=== PATIENT | male | born 1945 | race Hispanic/Latino ===

== ENCOUNTER 2017-08-17 06:22 | Observation (INO) | payer BC ==
[~2017-08-17 06:22] MED LIST: NACL ONE
[2017-08-17] MEDS ORDERED: ECOTRIN PO ONE (06:54)
[2017-08-17] MEDS ORDERED: NACL 0.9% 500 ML 500 ML IV SCH (07:00)
[2017-08-17 07:17] LABS: Hematocrit 37.2 % (35.5-45.6); Hemoglobin 13.3 gm/dl (11.8-15.2); Mean Corpuscular HGB Conc 36 % (32-34); Mean Corpuscular Hemoglobin 31 pg (28-32); Mean Corpuscular Volume 87 fl (84-94); Platelet Count 188 K/mm3 (140-440); Red Cell Distribution Width 14.8 % (13.2-15.2); White Blood Count 11.8 K/mm3 (4.5-11.0)
[2017-08-17 07:27] LABS: INR 1.14 (0.87-1.13)
[2017-08-17 07:41] LABS: BUN/Creatinine Ratio 22.3; Calcium 9.3 mg/dL (8.4-10.2); Chloride 97.3 mmol/L (98-107); Potassium 4.2 mmol/L (3.6-5.0)
[2017-08-17 08:15] LABS: Basophils % (Manual) 0 % (0.0-1.8); Blastocytes % (Manual) 0 %; Eosinophils % (Manual) 0 % (0.0-4.3)
[2017-08-17 08:16] LABS: Diff Status Complete; Ovalocytes 1+; Spherocytes Rare
[2017-08-17] MEDS ORDERED: BENADRYL ONE (09:30)
[2017-08-17] MEDS ORDERED: HEPARIN/NS 5000 UNIT/500ML(CATH LAB) 1,000 ML IR ONE (09:30)
[2017-08-17] MEDS ORDERED: VERSED ONE (09:31)
[2017-08-17] MEDS ORDERED: SUBLIMAZE ONE (09:31)
[2017-08-17] MEDS ORDERED: XYLOCAINE 2% INFILTRATI ONE ×2 (09:32→10:03)
[2017-08-17] MEDS ORDERED: CALAN ONE (09:33)
[2017-08-17] MEDS ORDERED: HEPARIN 10,000 UNITS/10 ML ONE (09:34)
[2017-08-17] MEDS ORDERED: NITROGLYCERIN SYRINGE 3 ML ONE (09:44)
[2017-08-17] MEDS ORDERED: BENADRYL IV ONE (10:00)
[2017-08-17] MEDS ORDERED: NACL 0.9% 500 ML IV ONE (10:00)
[2017-08-17] MEDS ORDERED: VERSED IV ONE (10:02)
[2017-08-17] MEDS ORDERED: SUBLIMAZE IV ONE (10:02)
[2017-08-17] MEDS ORDERED: NACL 0.9% 0 ML ONE (10:18)
[2017-08-17] MEDS ORDERED: NACL 0.9% 100 ML ONE (10:18)
[2017-08-17] MEDS ORDERED: NACL 0.9% 250ML 250 ML ONE (10:21)
[2017-08-17] MEDS ORDERED: NITROGLYCERIN SYRINGE UD ONE (10:37)
[2017-08-17] MEDS: ANGIOMAX IV ONE ×2 (10:40→10:41)
[2017-08-17] MEDS ORDERED: APRESOLINE ONE (10:41)
[2017-08-17] MEDS ORDERED: AGGRASTAT DRIP (12.5 MG/250 ML) 12,500 MCG/250 ML BAG IV ONE (10:43)
[2017-08-17] MEDS ORDERED: EFFIENT PO ONE (10:51)
[2017-08-17] MEDS ORDERED: ZOFRAN IV PRN (11:07)
[2017-08-17] MEDS ORDERED: TYLENOL PO PRN (11:07)
[2017-08-17] MEDS ORDERED: D50W (25GM) Syringe IV PRN (11:08)
[2017-08-17] MEDS: EFFIENT PO SCH (11:10)
[2017-08-17] MEDS ORDERED: ALUM-MAG HYDROX-SIMETH 200-200-20MG/5ML ONE (11:30)
[2017-08-17] MEDS: NOVOLOG SUB-Q SCH ×3 (13:13→22:17)
[2017-08-17] MEDS ORDERED: NOVOLOG SUB-Q ONE (13:13)
--- NOTE | 2017-08-17 19:03 | Cardiac Catherization Report ---
CARDIAC CATHETERIZATION REFERRING PHYSICIAN: Dr. Riccardo Rivera. INDICATION FOR PROCEDURE: The patient is a very pleasant 71-year-old gentleman with multiple PCIs, history of AK, having some mild chest discomfort, abnormal stress test with anterolateral ischemia, on greater than 2 antianginal medications, referred for left heart catheterization. Risks, benefits, and potential alternatives explained at length prior to obtaining informed consent. PROCEDURE IN DETAIL: The patient was brought to the propagator laborer in a postabsorptive state, prepped and draped in sterile fashion. Rafi's test in right hand normal. A 2 mL of 2% lidocaine used to anesthetize the right wrist. A standard 6-Portuguese hydrophilic sheath used to cannulate the right radial artery via modified Seldinger technique. All exchanges were performed to exchange a J-tip guidewire. JL3.5 catheter used to engage the left main. No dampening or ventricularization. Cineangiography performed in all projections. JR4 catheter used to cross the aortic valve under fluoroscopic guidance. Left ventriculography performed in 30 DEUTSCH and 30 JULIA projections via hand injections, catheter flushed. Manual pullback performed with continuous pressure monitoring. Catheter used to engage the right coronary. No dampening or ventricularization. Cineangiography performed in all projections. DATA: Aortic pressure is 160/80, LV pressure is 160. LVEDP of mmHg. Left ventriculography revealed normal systolic performance with estimated ejection fraction of 55% to 60%. No evidence of aortic stenosis. CORONARY ANATOMY: This is a right dominant system. Left main is a moderate sized vessel, no significant disease, bifurcates into left anterior descending and left circumflex. Left circumflex is a moderate sized vessel, courses AV groove. No significant obstructive disease identified. LAD is a moderate sized vessel, courses anterior intergroove, wraps around the apex. There are multiple stents in the proximal and mid LAD. There is 25% to 30% in-stent restenosis proximally. The distal segment of the stent and mid LAD has at least 90% to 95% in-stent restenosis and just distal to the stent, there is also discrete 90% stenosis. The distal vessel is small and with mild to moderate diffuse disease, JAKY 3 flow. Right coronary is a moderate sized vessel, courses AV groove, distally bifurcates in the posterior descending and posterolateral branch. There is a branch off of the PDA which is occluded. Left to right collaterals are identified. This is a small branch. Medical therapy recommended. At this point; given his symptoms, presentation, abnormal stress test, medication profile and angiographic findings, we decided to proceed with culprit stenosis in the mid LAD. EBU 3.5 guide used to engage the left main without difficulty. Abnormal ACT confirmed. The patient loaded with aspirin and Effient. A [place] wire was used to cross the lesion without difficulty. We used a 2.5 x 12 balloon to predilate the lesion without difficulty. Next, we used a 2.5 x 18 Resolute drug-eluting stent deployed at 10 for 30 seconds. Excellent final angiographic result. Intravascular ultrasound was performed. Reveals a well-opposed and well expanded stent. No other significant disease was identified, only 25% in-stent restenosis proximally. No complications. The patient is chest pain free. CONCLUSIONS: 1. Severe epicardial coronary disease in this right dominant system. A. Long segment of stents in the proximal and mid LAD, 25% in-stent restenosis in the proximal LAD, 90% to 95% in-stent restenosis in the distal segment of the mid LAD stent and the mid LAD just distal to the stent. This is the culprit vessel. B. Successful IVUS guided PCI with placement of drug-eluting stent (Resolute 2.5 x 18 drug-eluting stent) with excellent final angiographic and ultrasonographic results. C. A 100% chronic total occlusion of a small branch of the right PDA with extensive left to right collaterals. 2. Normal left ventricular systolic performance, estimated ejection fraction of 55% to 60%. At this point, the patient is clinically stable, chest pain free, loaded with aspirin, Effient, Aggrastat bolus. Radial sheath has been removed. Standard radial care, secondary and primary prevention measures were discussed. Discharge in a.m. if he remains stable. Results of the procedure were explained at length to the patient and family. All questions and concerns were addressed. The patient will follow up with Dr. Riccardo Rivera in the office. JOB# [id number] SBM/NTS
[2017-08-17] MEDS ORDERED: AMBIEN PO SCH (22:00)
[2017-08-17] MEDS: COREG PO SCH (22:17)
[2017-08-18 05:34] LABS: Hematocrit 41.2 % (35.5-45.6); Hemoglobin 14.5 gm/dl (11.8-15.2); Mean Corpuscular HGB Conc 35 % (32-34); Mean Corpuscular Hemoglobin 31 pg (28-32); Mean Corpuscular Volume 88 fl (84-94); Platelet Count 191 K/mm3 (140-440); Red Cell Distribution Width 14.7 % (13.2-15.2); White Blood Count 16.2 K/mm3 (4.5-11.0)
[2017-08-18 06:09] LABS: Creatine Kinase MB 5.1 ng/mL (0.0-4.0)
[2017-08-18 06:11] LABS: BUN/Creatinine Ratio 23.33; Calcium 9.5 mg/dL (8.4-10.2); Chloride 100.6 mmol/L (98-107); Potassium 3.8 mmol/L (3.6-5.0)
--- NOTE | 2017-08-18 06:23 | XRay Report ---
FINAL REPORT EXAM: XR CHEST 1V AP HISTORY: post pci TECHNIQUE: AP portable view(s) of the chest obtained. PRIORS: None. FINDINGS: No mediastinal shift. Cardiac silhouette is not enlarged. No pneumothorax, effusion, or focal pulmonary opacity identified. No acute skeletal findings. IMPRESSION: No acute pulmonary finding identified.
[2017-08-18 06:38] LABS: Basophils % (Manual) 0 % (0.0-1.8); Blastocytes % (Manual) 0 %; Eosinophils % (Manual) 0 % (0.0-4.3)
[2017-08-18 06:39] LABS: Diff Status Complete; Ovalocytes 1+
[2017-08-18] MEDS: COREG PO SCH (09:14)
[2017-08-18 09:15] VITALS: BP 168/78
[2017-08-18] MEDS: EFFIENT PO SCH (09:15)
[2017-08-18] MEDS: NOVOLOG SUB-Q SCH (09:15)
--- NOTE | 2017-08-18 09:39 | Short Stay Summary ---
Short Stay Documentation Date of service: 08/18/17 - History H&P: obtained from office - Allergies and Medications Current Medications: Allergies oxycodone Adverse Reaction (Verified 08/17/17 07:39) Hives Sulfa (Sulfonamide Antibiotics) Adverse Reaction (Verified 08/17/17 07:39) Hives IVP DYE Adverse Reaction (Uncoded 08/17/17 06:23) Hives Home Medications Medication Instructions Recorded Confirmed Last Taken Type Carvedilol Phosphate [Coreg CR] 40 mg PO QDAY 08/17/17 08/17/17 08/16/17 History Empagliflozin (Nf) [Jardiance (Nf)] 10 mg PO DAILY 08/17/17 08/17/17 08/16/17 History ISOSORBIDE MONOnitrate [Imdur ER] 30 mg PO DAILY 08/17/17 08/17/17 08/16/17 History Lisinopril [Zestril] 40 mg PO DAILY 08/17/17 08/17/17 08/16/17 History Omeprazole 20 mg PO DAILY 08/17/17 08/17/17 08/16/17 History Pravastatin Sodium [Pravastatin] 20 mg PO QHS 08/17/17 08/17/17 08/16/17 History Pregabalin [Lyrica] 75 mg PO BID 08/17/17 08/17/17 08/16/17 History Zolpidem [Ambien] 10 mg PO QHS 08/17/17 08/17/17 08/16/17 History Active Medications Acetaminophen (Tylenol) 650 mg PO Q6H PRN PRN Reason: Pain, Mild (1-3) Aspirin (Aspirin) 325 mg PO QDAY [facility] Last Admin: 08/18/17 09:13 Dose: 325 mg Atorvastatin Calcium (Lipitor) 20 mg PO QHS [facility] Last Admin: 08/17/17 22:17 Dose: Not Given Carvedilol (Coreg) 12.5 mg PO BID [facility] Last Admin: 08/18/17 09:14 Dose: 12.5 mg Dextrose (D50w (25gm) Syringe) 50 ml IV PRN PRN PRN Reason: Hypoglycemia Insulin Aspart (Novolog) 0 units SUB-Q ACHS [facility] PRN Reason: Protocol Last Admin: 08/18/17 09:15 Dose: Not Given Isosorbide Mononitrate (Imdur) 30 mg PO DAILY [facility] Last Admin: 08/18/17 09:14 Dose: 30 mg Lisinopril (Zestril) 40 mg PO DAILY [facility] Last Admin: 08/18/17 09:13 Dose: 40 mg Ondansetron HCl (Zofran) 4 mg IV Q8H PRN PRN Reason: Nausea And Vomiting Prasugrel (Effient) 10 mg PO QDAY [facility] Last Admin: 08/18/17 09:15 Dose: 10 mg Zolpidem Tartrate (Ambien) 10 mg PO QHS [facility] Last Admin: 08/17/17 22:16 Dose: 10 mg - Brief post op/procedure progress note Date of procedure: 08/17/17 Pre-op diagnosis: abnormal Post-op diagnosis: other (CAD) Procedure: [facility] - see cath report Anesthesia: local Estimated blood loss: none Condition: stable - Disposition Condition at discharge: Stable Disposition: [id number] TO HOME OR SELFCARE - Discharge Diagnoses (1) CAD (coronary artery disease) Status: Chronic Qualifiers: Coronary Disease-Associated Artery/Lesion type: C [place] vs. 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, 08/31/2017 @ 9:15AM) Forms: CardCath PCI D/C Instructions Prescriptions: Prasugrel [Effient] 10 mg PO QDAY #30 tablet
[2017-08-18] MEDS ORDERED: ASPIRIN PO SCH (10:00)
[2017-08-18] MEDS ORDERED: ZESTRIL PO SCH (10:00)
[2017-08-18] MEDS ORDERED: IMDUR PO SCH (10:00)
== END 2017-08-18 11:35 | disposition home or self-care (01) ==
LOC: CATHLABREC 06:22 → 4A 11:02
PROVIDERS: ADMIT Internal Medicine; ATTEND Internal Medicine
DX: I25.10 Atherosclerotic heart disease of native coronary artery without angina pectoris (principal); E78.4 Other hyperlipidemia; I10 Essential (primary) hypertension; I34.0 Nonrheumatic mitral (valve) insufficiency; I25.2 Old myocardial infarction; R94.39 Abnormal result of other cardiovascular function study; E11.9 Type 2 diabetes mellitus without complications
CPT/HCPCS: 36415; 71010; 80048; 82550; 82553; 82962; 84484; 85007; 85025; 85347; 85610; 85730; 92978; 93005; 93010; 93458; 96372; C1725; C1753; C1769; C1874; C1887; C1894; C9600; G0378; J0360; J0583; J1200; J1644; J2250; J2930; J3010; J3246; J7040; J7050; 92928; J1815; Q9967